=== PATIENT | male | born 1940 | race African-American/Black ===

== ENCOUNTER 2020-05-02 22:09 | Inpatient (IN) ==
[2020-05-02] MEDS ORDERED: cloNIDine HCL 0.1 MG TABLET PO ONE (22:24)
[2020-05-02 22:26] LABS: Basophils % 0.4 %; Eosinophils # 0.1 K/mcL (0.0-0.6); Eosinophils % 2.2 %; Hematocrit 34.3 % (37.5-50.1); Immature Granulocytes % 0.2 % (0-4); Lymphocytes # 1.4 K/mcL (0.6-4.6); Lymphocytes % 25.3 %; Mean Corpuscular Hemoglobin 37.4 pg (28.0-33.3); Mean Corpuscular Volume 106.9 fL (83.0-100.0); Mean Platelet Volume 12.2 fL (9.4-12.4); Monocytes # 0.5 K/mcL (0.0-1.3); Monocytes % 9.2 %; Neutrophils # 3.4 K/mcL (1.6-8.9); Platelet Count 137 K/mcL (140-400); Red Blood Count 3.21 M/mcL (4.19-5.50); Red Cell Distribution Width 11.9 % (11.5-14.5); Segmented Neutrophils % 62.7 %; White Blood Count 5.5 K/mcL (4.3-11.1)
[2020-05-02 22:34] LABS: Prothrombin Time 11.9 Seconds (9.4-12.1)
[2020-05-02 22:35] LABS: Bilirubin,Urine Negative (Negative); Blood,Urine Moderate (Negative); Clarity,Urine Clear (Clear); Color,Urine Yellow (Yellow); Glucose,Urine (UA) Normal (Normal); Ketones,Urine Negative (Negative); Leukocyte Esterase,Urine Small (Negative); Nitrite,Urine Negative (Negative); Protein,Urine 100 mg/dL (Neg-Trace); Specific Gravity,Urine 1.015 (1.010-1.025); Urobilinogen,Urine Normal (Normal)
[2020-05-02 22:42] LABS: Alanine Aminotransferase 15 Units/L (7-52); Albumin 3.5 g/dL (3.5-5.7); Albumin/Globulin Ratio 1.1 (1.1-2.2); Alkaline Phosphatase 59 Units/L (34-104); Aspartate Amino Transferase 23 Units/L (13-39); BUN/Creatinine Ratio 13 (6-26); Bilirubin,Total 0.4 mg/dL (0.3-1.0); Blood Urea Nitrogen 13 mg/dL (8-23); Calcium 8.7 mg/dL (8.6-10.3); Carbon Dioxide 28 mEq/L (23-29); Chloride 101 mEq/L (98-107); Globulin 3.3 g/dL (2.4-3.5); Glucose 141 mg/dL (70-105); Magnesium 1.5 mg/dL (1.6-2.6); Osmolality,Calculated 288 (280-300); Potassium 3.8 mEq/L (3.5-5.1); Sodium 138 mEq/L (136-145); Total Protein 6.8 g/dL (6.4-8.9); eGFR For African Americans > 60 (> 60); eGFR For Non-African Americans > 60 (> 60)
[2020-05-02 22:44] LABS: Troponin I < 0.03 ng/mL (< 0.04)
[2020-05-02 22:46] LABS: Squamous Epithelial Cell,Urine Few per hpf (None-Few); WBC,Urine 0-3 per hpf (0-3)
[2020-05-02] MEDS ORDERED: Isovue-370 500 ML BOTTLE IVP ONE (23:32)
[2020-05-02] MEDS ORDERED: lisinopriL 20 MG TABLET PO SCH (23:45)
[2020-05-03] MEDS ORDERED: 0.9 % Sodium Chloride 1,000 ML IV ONE (00:27)
[2020-05-03] MEDS ORDERED: cefTRIAXone 1,000 MG in 0.9 % Sodium Chloride Mini Bag 100 ML IVPB ONE (00:27)
[2020-05-03] MEDS ORDERED: Magnesium Sulfate 1 GM/102 ML PIGGYBACK IVPB ONE (00:28)
[2020-05-03] MEDS ORDERED: Azithromycin 500 MG in 0.9 % Sodium Chloride 250 ML IVPB ONE (00:42)
[2020-05-03] MEDS ORDERED: Naloxone 0.4 MG/ML INJ IVP PRN (02:34)
[2020-05-03] MEDS ORDERED: Ondansetron 4 MG/2 ML VIAL IVP PRN (02:34)
[2020-05-03] MEDS ORDERED: 0.9 % Sodium Chloride 1,000 ML IVC SCH (02:34)
[2020-05-03] MEDS ORDERED: Dextrose Gel 15 GM/37.5 ML TUBE PO PRN ×2 (07:28)
[2020-05-03] MEDS ORDERED: *HR* Dextrose 50 % in Water (Vial) 50 ML VIAL IVP PRN (07:28)
[2020-05-03] MEDS ORDERED: D5% in Water 1,000 ML IVC PRN (07:28)
[2020-05-03] MEDS ORDERED: Azithromycin 500 MG in 0.9 % Sodium Chloride 250 ML IVPB SCH (08:00)
[2020-05-03] MEDS ORDERED: Insulin LISPRO 300 UNITS/3 ML VIAL SQ SCH (08:00)
[2020-05-03] MEDS: Insulin LISPRO 300 UNITS/3 ML VIAL SQ SCH ×5 (08:33→19:52)
[2020-05-03] MEDS: Folic Acid 1 MG TABLET PO SCH (08:58)
[2020-05-03] MEDS: Cholecalciferol (D-3) 1,000 UNIT (25MCG) TABLET PO SCH (08:58)
[2020-05-03] MEDS: lisinopriL 20 MG TABLET PO SCH (08:59)
[2020-05-03] MEDS: cefTRIAXone 1,000 MG in 0.9 % Sodium Chloride Mini Bag 100 ML IVPB SCH (08:59)
[2020-05-03] MEDS ORDERED: Hydroxyurea 500 MG CAPSULE PO SCH (09:00)
[2020-05-03] MEDS: Hydroxyurea 500 MG CAPSULE PO SCH (09:01)
[2020-05-03] MEDS: Aspirin Enteric Coated 81 MG Tablet PO SCH (09:19)
[2020-05-03 09:20] LABS: Estimated Average Glucose 108 mg/dl
[2020-05-03 09:23] LABS: Basophils % 0.4 %; Eosinophils # 0.1 K/mcL (0.0-0.6); Eosinophils % 1.3 %; Hematocrit 30.2 % (37.5-50.1); Hemoglobin 10.4 g/dL (12.9-16.9); Immature Granulocytes % 0.6 % (0-4); Lymphocytes # 1.1 K/mcL (0.6-4.6); Lymphocytes % 20.3 %; Mean Corpuscular HGB Conc 34.4 g/dL (31.6-35.5); Mean Corpuscular Volume 110.2 fL (83.0-100.0); Mean Platelet Volume 11.7 fL (9.4-12.4); Monocytes # 0.5 K/mcL (0.0-1.3); Monocytes % 8.7 %; Neutrophils # 3.7 K/mcL (1.6-8.9); Platelet Count 130 K/mcL (140-400); Red Blood Count 2.74 M/mcL (4.19-5.50); Red Cell Distribution Width 11.9 % (11.5-14.5); Segmented Neutrophils % 68.7 %; White Blood Count 5.4 K/mcL (4.3-11.1)
[2020-05-03 09:38] LABS: Alanine Aminotransferase 12 Units/L (7-52); Albumin 2.9 g/dL (3.5-5.7); Alkaline Phosphatase 46 Units/L (34-104); Aspartate Amino Transferase 18 Units/L (13-39); BUN/Creatinine Ratio 14 (6-26); Bilirubin,Total 0.3 mg/dL (0.3-1.0); Blood Urea Nitrogen 14 mg/dL (8-23); Calcium 8.2 mg/dL (8.6-10.3); Carbon Dioxide 29 mEq/L (23-29); Chloride 106 mEq/L (98-107); Globulin 2.8 g/dL (2.4-3.5); Glucose 104 mg/dL (70-105); Osmolality,Calculated 291 (280-300); Sodium 140 mEq/L (136-145); Total Protein 5.7 g/dL (6.4-8.9); eGFR For African Americans > 60 (> 60); eGFR For Non-African Americans > 60 (> 60)
[2020-05-03 09:47] LABS: Macrocytosis Present (Not Present)
[2020-05-03] MEDS ORDERED: Acetaminophen 325 MG TABLET PO PRN (11:40)
[2020-05-03] MEDS ORDERED: *HR* LORazepam 2 MG/ML VIAL IM ONE (14:22)
[2020-05-03] MEDS ORDERED: *HR* LORazepam 2 MG/ML VIAL IVP ONE (14:38)
[2020-05-03] MEDS: cloNIDine HCL 0.1 MG TABLET PO PRN (18:51)
[2020-05-03] MEDS ORDERED: Insulin DETEMIR 100 UNIT/ML per UNIT SQ SCH (21:00)
[2020-05-03] MEDS ORDERED: QUEtiapine Fumarate 25 MG TABLET PO SCH (21:00)
[2020-05-04] MEDS ORDERED: Azithromycin 500 MG in 0.9 % Sodium Chloride 250 ML IVPB SCH (02:00)
[2020-05-04 05:35] LABS: Chol/HDL Ratio 2.5 (0-4.9)
[2020-05-04] MEDS: cefTRIAXone 1,000 MG in 0.9 % Sodium Chloride Mini Bag 100 ML IVPB SCH (08:11)
[2020-05-04] MEDS: Hydroxyurea 500 MG CAPSULE PO SCH (08:13)
[2020-05-04] MEDS: Aspirin Enteric Coated 81 MG Tablet PO SCH (08:13)
[2020-05-04] MEDS: lisinopriL 20 MG TABLET PO SCH (08:13)
[2020-05-04] MEDS: Folic Acid 1 MG TABLET PO SCH (08:13)
[2020-05-04] MEDS: Cholecalciferol (D-3) 1,000 UNIT (25MCG) TABLET PO SCH (08:14)
[2020-05-04] MEDS: Insulin LISPRO 300 UNITS/3 ML VIAL SQ SCH ×3 (08:14→16:42)
[2020-05-04] MEDS ORDERED: haloperidoL 1 MG TABLET PO ONE ×2 (09:04→13:30)
[2020-05-04] MEDS: cloNIDine HCL 0.1 MG TABLET PO PRN (10:00)
[2020-05-04 15:09] LABS: Adenovirus Not Detected (Not Detect); Bordetella Pertussis Not Detected (Not Detect); Chlamydophila pneumoniae Not Detected (Not Detect); Coronavirus 229E Not Detected (Not Detect); Coronavirus HKU1 Not Detected (Not Detect); Coronavirus NL63 Not Detected (Not Detect); Coronavirus OC43 Not Detected (Not Detect); Human Metapneumovirus Not Detected (Not Detect); Human Rhinovirus/Enterovirus Not Detected (Not Detect); Influenza A Subtype 2009 H1 Not Detected (Not Detect); Influenza B Not Detected (Not Detect); Mycoplasma pneumoniae Not Detected (Not Detect); Parainfluenza Virus 1 Not Detected (Not Detect); Parainfluenza Virus 2 Not Detected (Not Detect); Parainfluenza Virus 3 Not Detected (Not Detect); Parainfluenza Virus 4 Not Detected (Not Detect); Respiratory Syncytial Virus Not Detected (Not Detect)
[2020-05-04 16:55] VITALS: BP 175/91
[2020-05-05] MEDS ORDERED: lisinopriL 20 MG TABLET PO SCH (09:00)
== END 2020-05-04 18:15 | disposition home health service (06) | DRG 689 ==
LOC: EMEROOPIK 22:09 → INPPIK 22:09
PROVIDERS: ADMIT Family Medicine; ATTEND Family Medicine